=== PATIENT | female | born 2005 | race Caucasian/White ===

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

== ENCOUNTER → 2025-06-16 10:24 | Outpatient (REF) | payer BC, SELFPAY ==
[2025-06-16 11:26] LABS: ALT (SGPT) 17 U/L (0-35); AST (SGOT) 25 U/L (14-36); Albumin 4.3 g/dl (3.5-5.0); Alkaline Phosphatase 58 U/L (38-126); HDL Cholesterol 61 mg/dl; LDL Cholesterol, Calculated 78 mg/dl; Total Protein 7.0 g/dl (6.3-8.2); Very Low Density Lipoprotein 22 mg/dl (0-30)
== END ==
LOC: REG 10:24
PROVIDERS: FAMILY PHYSICIAN Pediatrics
DX: L70.0 Acne vulgaris (principal)
CPT/HCPCS: 36415; 80061; 80076